=== PATIENT | female | born 1950 | race Caucasian/White ===

== ENCOUNTER 2023-10-12 10:07 | Day surgery (SDC) | payer OTHER ==
[2023-10-11 11:20] VITALS: BMI 21.9
[2023-10-12] MEDS ORDERED: EPINEPHrine 1 MG/ML VIAL ONE (11:46)
[2023-10-12] MEDS ORDERED: Bupivacaine 0.25% HCL 30 ML VIAL ONE (11:47)
[2023-10-12] MEDS ORDERED: CEFAZOLIN 2 GM VIAL ONE (12:00)
[2023-10-12] MEDS ORDERED: Rocuronium Bromide 10 MG/ML (10ML VIAL) ONE (12:00)
[2023-10-12] MEDS ORDERED: PROPOFOL 20 ML ONE (12:00)
[2023-10-12] MEDS ORDERED: fentaNYL 50 mcg/mL 1 mL Vial ONE (12:00)
[2023-10-12] MEDS ORDERED: Lidocaine 1% PF 5 ML VIAL ONE (12:00)
[2023-10-12] MEDS ORDERED: SUGAMMADEX SODIUM 200 MG/2 ML VIAL ONE (12:04)
[2023-10-12] MEDS ORDERED: ePHEDrine Sulfate 50 MG/10 ML VIAL ONE (12:24)
[2023-10-12] MEDS ORDERED: Glycopyrrolate 0.2 MG/ML 5 ML SYRINGE ONE (13:03)
[2023-10-12] MEDS ORDERED: Ondansetron PF 4 MG/2 ML Vial ONE ×2 (13:07→13:44)
[2023-10-12] MEDS ORDERED: traMADol HCl 50 MG TAB ONE (14:31)
== END 2023-10-12 15:39 | disposition home or self-care (01) ==
LOC: CSHSDC 10:07
PROVIDERS: ATTEND Surgery
PROC: 0YU64JZ Supplement Left Inguinal Region with Synthetic Substitute, Percutaneous Endoscopic Approach (ICD-10-PCS; principal; 2023-10-12)
DX: K40.90 Unilateral inguinal hernia, without obstruction or gangrene, not specified as recurrent (principal); K44.9 Diaphragmatic hernia without obstruction or gangrene; I10 Essential (primary) hypertension; M19.90 Unspecified osteoarthritis, unspecified site; Z79.899 Other long term (current) drug therapy; Z90.710 Acquired absence of both cervix and uterus; Z91.048 Other nonmedicinal substance allergy status; Z88.5 Allergy status to narcotic agent; Z88.8 Allergy status to other drugs, medicaments and biological substances
CPT/HCPCS: 49650; C1781; J0171; J0665; J2405; J2704; J3010